=== PATIENT | female | born 1965 | race Two or more races ===

== ENCOUNTER 2025-01-02 06:58 | Emergency (ER) | payer OTHER ==
[~2025-01-02] VITALS: Ht 165.1 cm; Wt 68.5 kg
[2025-01-02] MEDS ORDERED: ATORVASTATIN CA10 MG PO (07:18)
[2025-01-02] MEDS ORDERED: PROTONIX40 MG PO (07:19)
[2025-01-02] MEDS ORDERED: NEURONTIN300 MG PO (07:19)
[2025-01-02] MEDS ORDERED: DEXAMETHASONE SODIUM PHOSPHATE 4 MG/ML VIAL IM STA (07:42)
[2025-01-02] MEDS ORDERED: KETOROLAC TROMETHAMINE 30 MG VIAL IM STA (07:42)
[2025-01-02 08:56] LABS: BASO % 0.9 % (0.1-1.2); EOS # 0.09 (0.04-0.54); EOS % 1.6 % (0.7-7.0); LYMPH # 2.29 (1.18-3.74); LYMPH % 41.4 % (19.3-53.1); MEAN PLATELET VOLUME 9.80 fl (9.4-12.4); MONO # 0.26 (0.24-0.82); MONO % 4.7 % (4.7-12.5); NEUT # 2.83 (1.56-6.13); NEUT % 51.2 % (34.0-71.1); RED CELL DISTRIBUTION WIDTH 12.9 % (11.6-14.4)
[2025-01-02 09:13] LABS: INR 1.02
[2025-01-02 09:21] LABS: BUN CREA RATIO 18.0 (7.0-25.0); CREATININE SERUM 0.93 mg/dL (0.55-1.02); GFR 62.14; GLUCOSE FASTING 90.0 mg/dL (65-100); OSMOLALITY SERUM 286.0 MOSM/KG (275-295)
[2025-01-02 10:23] LABS: ERYTHROCYTE SEDIMENTATION RATE 60 mm/hr (0-30)
[2025-01-02] MEDS ORDERED: NAPROXEN500 MG PO (11:37)
== END 2025-01-02 11:54 | disposition home or self-care (01) ==
LOC: ER 06:59
PROVIDERS: General Practice
DX: M79.605 Pain in left leg (principal); E11.9 Type 2 diabetes mellitus without complications